=== PATIENT | male | born 1935 | race Hispanic/Latino ===

== ENCOUNTER 2017-12-14 14:16 | Emergency (ER) | payer OTHER ==
--- NOTE | 2017-12-14 17:36 | ER ---
Nurse's Notes [facility] Name: Jason Block Age: 82 yrs Sex: Male : 1935 Arrival Date: 12/14/2017 Time: 14:21 Bed 6 Private MD: None, None Diagnosis: Hematoma Presentation: 12/14 14:29 Presenting complaint: Child states: Swelling to surgical incision site, left hip area. jl7 Pt reports mild pain to the site. Transition of care: patient was not received from another setting of care. Onset of symptoms was December 13, 2017. Risk Assessment: Do you want to hurt yourself or someone else? Patient reports no desire to harm self or others. Initial Sepsis Screen: Does the patient meet any 2 criteria? No. Patient's initial sepsis screen is negative. Does the patient have a suspected source of infection? No. Patient's initial sepsis screen is negative. Care prior to arrival: None. 14:29 Method Of Arrival: Ambulatory [facility] 14:29 Acuity: JAIDEN 3 jl7 Triage Assessment: 14:33 General: Appears in no apparent distress. uncomfortable, Behavior is calm, cooperative, jl7 appropriate for age. Pain: Complains of pain in left femoral area Pain does not radiate. Pain currently is 2 out of 10 on a pain scale. 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 - Social history:: Smoking status: Patient/guardian denies using tobacco. - Ebola Screening: : No symptoms or risks identified at this time. Screenin:32 Abuse screen: Denies threats or abuse. Nutritional screening: No deficits noted. tw2 Tuberculosis screening: No symptoms or risk factors identified. Fall Risk None identified. Assessment: 14:40 General: Appears in no apparent distress. Behavior is calm, cooperative, appropriate tw2 for age. Pain: Denies pain. Neuro: Level of Consciousness is awake, alert, obeys commands, Oriented to person, place, situation. Cardiovascular: Denies chest pain, shortness of breath, Heart tones S1 S2 Patient's skin is warm and dry. Respiratory: Airway is patent Respiratory effort is even, unlabored, Respiratory pattern is regular, symmetrical, Breath sounds are clear bilaterally. GI: No signs and/or symptoms were reported involving the gastrointestinal system. : No signs and/or symptoms were reported regarding the genitourinary system. Derm: Skin is intact, is fragile, is thin, Skin is dry, Skin temperature is warm right inguinal swelling noted to surgical site. Musculoskeletal: Range of motion: intact in all extremities. 15:32 Reassessment: Patient appears in no apparent distress at this time. No changes from tw2 previously documented assessment. Patient and/or family updated on plan of care and expected duration. Pain level reassessed. Patient is alert, oriented x 3, equal unlabored respirations, skin warm/dry/pink. 16:53 Reassessment: Patient appears in no apparent distress at this time. No changes from tw2 previously documented assessment. Patient and/or family updated on plan of care and expected duration. Pain level reassessed. Patient is alert, oriented x 3, equal unlabored respirations, skin warm/dry/pink. 17:37 Reassessment: Patient appears in no apparent distress at this time. No changes from tw2 previously documented assessment. Patient and/or family updated on plan of care and expected duration. Pain level reassessed. Patient is alert, oriented x 3, equal unlabored respirations, skin warm/dry/pink. Vital Signs: 14:33 BP 96 / 48; Pulse 80; Resp 18 S; Temp 98.5(O); Pulse Ox 98% on R/A; Weight 70.31 kg jl7 (R); Height 5 ft. 6 in. (167.64 cm) (R); Pain 2/10; 15:31 BP 101 / 52; Pulse 80; Resp 17; Pulse Ox 100% on R/A; tw2 16:52 BP 111 / 57; Pulse 79; Resp 17; Pulse Ox 99% on R/A; tw2 17:37 BP 98 / 57; Pulse 80; Resp 17; Pulse Ox 100% on R/A; tw2 14:33 Body Mass Index 25.02 (70.31 kg, 167.64 cm) 7 ED Course: 14:21 Patient arrived in ED. mr 14:22 None, None is Private Physician. mr 14:30 Triage completed. jl7 14:33 Arm band placed on left wrist. jl7 14:35 Bed in low position. Call light in reach. Adult w/ patient. child monitor on. Pulse tw2 ox on. NIBP on. 14:36 Nayan Patino PA is PHCP. jr8 14:36 Ivan Gallardo MD is Attending Physician. jr8 15:28 Cynthia Stroud, RN is Primary Nurse. tw2 16:47 US Extrmty Nonvasular Limited In Process Unspecified. EDMS 17:42 No provider procedures requiring assistance completed. Patient did not have IV access tw2 during this emergency room visit. Administered Medications: No medications were administered Outcome: 17:35 Discharge ordered by . jr8 17:42 Discharged to home ambulatory, with family. tw2 17:42 Condition: stable 17:42 Discharge instructions given to patient, family, Instructed on discharge instructions, follow up and referral plans. Demonstrated understanding of instructions, follow-up care. 17:52 Patient left the ED. hb Signatures: Dispatcher [employer] EDCA Libby Wise mr Nayan Patino PA PA jr8 Luna Mendoza, RN RN Cynthia Stroud, RN RN tw2 Xin Chacko, RN RN jl7
--- NOTE | 2017-12-14 17:36 | EDPHYS ---
Physician Documentation [facility] Name: Jason Block Age: 82 yrs Sex: Male : 1935 Arrival Date: 12/14/2017 Time: 14:21 Bed 6 Private MD: None, None ED Physician Ivan Gallardo HPI: 12/14 16:10 This 82 yrs old Male presents to ER via Ambulatory with complaints of Ball on jr8 surgical site. 16:10 Patient last week had endovascular surgery of some kind. Family could not tell us jr8 exactly what. Stated that they noticed swelling to surgical site that is getting bigger. Stated that it will drain clear fluid from time to time as well. Patient denies pain or tenderness to site . The patient has not experienced similar symptoms in the past. The patient has not recently seen a physician. 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 - Social history:: Smoking status: Patient/guardian denies using tobacco. - Ebola Screening: : No symptoms or risks identified at this time. ROS: 16:10 Eyes: Negative for injury, pain, redness, and discharge, ENT: Negative for injury, jr8 pain, and discharge, Neck: Negative for injury, pain, and swelling, Cardiovascular: Negative for chest pain, palpitations, and edema, Respiratory: Negative for shortness of breath, cough, wheezing, and pleuritic chest pain, Abdomen/GI: Negative for abdominal pain, nausea, vomiting, diarrhea, and constipation, Back: Negative for injury and pain, MS/Extremity: Negative for injury and deformity, Neuro: Negative for headache, weakness, numbness, tingling, and seizure. 16:10 Skin: Positive for swelling, of the left femoral area. Exam: 16:10 Cardiovascular: Regular rate and rhythm with a normal S1 and S2. No gallops, murmurs, jr8 or rubs. Normal PMI, no JVD. No pulse deficits. Respiratory: Lungs have equal breath sounds bilaterally, clear to auscultation and percussion. No rales, rhonchi or wheezes noted. No increased work of breathing, no retractions or nasal flaring. Abdomen/GI: Soft, non-tender, with normal bowel sounds. No distension or tympany. No guarding or rebound. No evidence of tenderness throughout. Back: No spinal tenderness. No costovertebral tenderness. Full range of motion. MS/ Extremity: Pulses equal, no cyanosis. Neurovascular intact. Full, normal range of motion. Neuro: Awake and alert, GCS 15, oriented to person, place, time, and situation. Cranial nerves II-XII grossly intact. Motor strength 5/5 in all extremities. Sensory grossly intact. Cerebellar exam normal. Normal gait. 16:10 Skin: Patient has approximately 5 inch incision to left inguinal region. Dermal sutures placed and are intact. Mild clear fluid noted to area. No dehiscence of wound seen. No erythema/cellulitis seen. Palpable soft tissue swelling noted to surgical site that is well demarcated . Vital Signs: 14:33 BP 96 / 48; Pulse 80; Resp 18 S; Temp 98.5(O); Pulse Ox 98% on R/A; Weight 70.31 kg 7 (R); Height 5 ft. 6 in. (167.64 cm) (R); Pain 2/10; 15:31 BP 101 / 52; Pulse 80; Resp 17; Pulse Ox 100% on R/A; tw2 16:52 BP 111 / 57; Pulse 79; Resp 17; Pulse Ox 99% on R/A; tw2 17:37 BP 98 / 57; Pulse 80; Resp 17; Pulse Ox 100% on R/A; tw2 14:33 Body Mass Index 25.02 (70.31 kg, 167.64 cm) 7 MDM: 14:36 Patient medically screened. jr8 17:34 Data reviewed: vital signs, nurses notes, radiologic studies, ultrasound, and as a jr8 result, I will discharge patient. Data interpreted: Pulse oximetry: on room air is 99 %. Interpretation: normal. 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 ED course: Discussed case with Radiologist. Isolated Hematoma with no vascularity to it. . 12/14 15:13 Order name: US Cm Nonvasular Limited; Complete Time: 17:39 jr8 Administered Medications: No medications were administered Disposition: 12/15 07:13 Co-signature as Attending Physician, Ivan Gallardo MD. rn Disposition: 12/14/17 17:35 Discharged to Home. Impression: Hematoma . - Condition is Stable. - Discharge Instructions: Hematoma. - Medication Reconciliation Form, Thank You Letter, Antibiotic Education, Prescription Opioid Use form. - Follow up: Private Physician; When: 5 - 6 days; Reason: Recheck today's complaints, Continuance of care, Re-evaluation by your physician. - Problem is new. - Symptoms are unchanged. Signatures: Dispatcher [employer] EDMS Ivan Gallardo MD MD rn Roszak, Josh, PA PA jr8 Luna Mendoza RN RN hb Xin Chacko RN RN jl7 Corrections: (The following items were deleted from the chart) 12/14 17:52 17:35 12/14/2017 17:35 Discharged to Home. Impression: Hematoma . Condition is Stable. hb Forms are Medication Reconciliation Form, Thank You Letter, Antibiotic Education, Prescription Opioid Use. Follow up: Private Physician; When: 5 - 6 days; Reason: Recheck today's complaints, Continuance of care, Re-evaluation by your physician. Problem is new. Symptoms are unchanged. jr8
--- NOTE | 2017-12-14 17:37 | RAD REPORT ---
EXAM DESCRIPTION: US - Extremity Nonvascular Limited - 12/14/2017 5:30 pm CLINICAL HISTORY: Left groin pain COMPARISON: None FINDINGS: A 5.7 centimeter heterogeneous fluid collection is present within the left groin. It does not contain blood flow. IMPRESSION: A 5.7 centimeter heterogeneous fluid collection within the left groin most likely repres ents a hematoma.
== END 2017-12-14 17:52 | disposition home or self-care (01) ==
LOC: ER 14:16
DX: L76.32 Postprocedural hematoma of skin and subcutaneous tissue following other procedure (principal); I10 Essential (primary) hypertension; Z95.0 Presence of cardiac pacemaker; Z95.1 Presence of aortocoronary bypass graft
CPT/HCPCS: 76882; 99284

== ENCOUNTER 2018-04-07 19:28 | Emergency (ER) | payer OTHER ==
--- OUTSIDE RECORDS SUMMARY | 2018-04-07 19:31 | XMS REPORT ---
:1935 [facility] Address [address] [place] [address] [address] [place] [address] Care Team Providers Name Role Phone Unavailable Unavailable Unavailable Payers Payer Name Policy Type Policy Number Effective Date Expiration Date Problems This patient has no known problems. Allergies, Adverse Reactions, Alerts Allergy Allergy Status Severity Reaction(s) Onset Inactive Treating Comments Name Type Date Date Clinician No Known DA Active U 2016-03 Allergies -27 00:00:0 0 Medications This patient has no known medications.
[2018-04-07] MEDS ORDERED: ONDANSETRON 4 MG/2 ML VIAL ONE (21:09)
[2018-04-07] MEDS ORDERED: NA CHLORIDE 0.9% 250 ML ONE (21:09)
[2018-04-07 21:19] LABS: Albumin 3.4 g/dL (3.4-5.0); Potassium 3.9 mmol/L (3.5-5.1)
[2018-04-07 21:26] LABS: Absolute Lymphocytes (CBC) 1.9 K/uL (0.7-4.9); Absolute Neutrophil 6.9 K/uL (1.8-8.0); Basophils % 1.9 % (0-1.3); Eosinophils % 7.7 % (0-4.4); Hematocrit 28.8 % (39.6-49.0); Lymphocytes % 17.7 % (15.3-44.8); MCH 28.1 pg (27.0-35.0); MCV 84.5 fL (80-100); MPV 8.2 fL (7.6-11.3); Monocytes % 9.4 % (3.3-12.3); RBC Red Blood Cell Count 3.41 M/uL (4.33-5.43)
[2018-04-07 21:35] LABS: Bilirubin Direct 0.3 mg/dL (0-0.2); Bilirubin Total 0.5 mg/dL (0.2-1.0); Protein, Total 7.5 g/dL (6.4-8.2)
[2018-04-08] MEDS ORDERED: NA CHLORIDE 0.9% 500 ML ONE (00:23)
--- NOTE | 2018-04-08 00:37 | ER ---
Nurse's Notes [facility] Name: Jason Block Age: 82 yrs Sex: Male : 1935 Arrival Date: 04/07/2018 Time: 19:31 Bed 20 Private MD: Diagnosis: Unspecified abdominal pain;Vomiting;Diarrhea, unspecified Presentation: 04/07 19:39 Presenting complaint: Child states: Patient had defibrillator/pacemaker replaced on aj Sunday and reports that he "can feel something moving" in epigastrium. Denies pain. NAD. Transition of care: patient was not received from another setting of care. Onset of symptoms was April 03, 2018. Risk Assessment: Do you want to hurt yourself or someone else? Patient reports no desire to harm self or others. Initial Sepsis Screen: Does the patient meet any 2 criteria? No. Patient's initial sepsis screen is negative. Does the patient have a suspected source of infection? No. Patient's initial sepsis screen is negative. Care prior to arrival: None. 19:39 Method Of Arrival: Wheelchair aj 19:39 Acuity: JAIDEN 3 aj Triage Assessment: 19:41 General: Appears in no apparent distress. comfortable, Behavior is calm, cooperative, aj appropriate for age. Pain: Denies pain. Neuro: Level of Consciousness is awake, alert, obeys commands, Oriented to person, place, time, situation, Appropriate for age. Cardiovascular: Denies chest pain. Respiratory: Airway is patent Respiratory effort is even, unlabored, Respiratory pattern is regular, symmetrical. Derm: Skin is intact, is thin, Skin is pink, warm \\T\\ dry. normal. Historical: - Allergies: 19:41 No Known Allergies; aj - PMHx: 19:41 Anemia; COPD; Hyperlipidemia; Hypertension; Pacemaker; defibrillator; aj - PSHx: 19:41 TAVR (transaortic valve replacement) 12/07/17; CABG; aj - Immunization history:: Adult Immunizations up to date. - Social history:: Smoking status: Patient/guardian denies using tobacco. - Ebola Screening: : Patient negative for fever greater than or equal to 101.5 degrees Fahrenheit, and additional compatible Ebola Virus Disease symptoms Patient denies exposure to infectious person Patient denies travel to an Ebola-affected area in the 21 days before illness onset No symptoms or risks identified at this time. - Family history:: not pertinent. - Hospitalizations: : No recent hospitalization is reported. Screenin:41 Abuse screen: Denies threats or abuse. Nutritional screening: No deficits noted. jd3 Tuberculosis screening: No symptoms or risk factors identified. Fall Risk Ambulatory Aid- Crutches/Cane/Walker (15 pts). Gait- Weak (10 pts.). Mental Status- Oriented to own ability (0 pts). Total Chiang Fall Scale indicates Low Risk Score (25-44 pts). Fall prevention measures have been instituted. Side Rails Up X 2 Placed close to Nursing Station Frequent Obs/Assesments occuring Family Present and informed to notify staff if they need to leave bedside. Assessment: 20:39 General: Appears in no apparent distress. uncomfortable, Behavior is calm, cooperative, jd3 appropriate for age. Pain: Denies pain. Neuro: Level of Consciousness is awake, alert, obeys commands, Oriented to person, place, time, situation. Cardiovascular: Reports since recent pace-maker change Heart tones S1 S2 present Capillary refill < 3 seconds Patient's skin is warm and dry. Respiratory: Airway is patent Respiratory effort is even, unlabored, Respiratory pattern is regular, symmetrical, Breath sounds are clear bilaterally. GI: Abdomen is round non-distended, Bowel sounds present X 4 quads. Abd is soft and non tender X 4 quads. Reports slight discomfort in upper abdomen. : No signs and/or symptoms were reported regarding the genitourinary system. EENT: No signs and/or symptoms were reported regarding the EENT system. Derm: Skin is intact, Skin is dry, Skin is normal, Skin temperature is warm. Musculoskeletal: Circulation, motion, and sensation intact. Range of motion: intact in all extremities. 20:45 Reassessment: CT notified of pt finishing PO contrast. jd3 21:48 Reassessment: Patient appears in no apparent distress at this time. No changes from jd3 previously documented assessment. Patient and/or family updated on plan of care and expected duration. Pain level reassessed. Patient is alert, oriented x 3, equal unlabored respirations, skin warm/dry/pink. 22:52 Reassessment: Patient appears in no apparent distress at this time. No changes from jd3 previously documented assessment. Patient and/or family updated on plan of care and expected duration. Pain level reassessed. Patient is alert, oriented x 3, equal unlabored respirations, skin warm/dry/pink. 23:45 Reassessment: Patient appears in no apparent distress at this time. No changes from jd3 previously documented assessment. Patient and/or family updated on plan of care and expected duration. Pain level reassessed. Patient is alert, oriented x 3, equal unlabored respirations, skin warm/dry/pink. 04/08 00:31 Reassessment: Patient appears in no apparent distress at this time. No changes from jd3 previously documented assessment. Patient and/or family updated on plan of care and expected duration. Pain level reassessed. Patient is alert, oriented x 3, equal unlabored respirations, skin warm/dry/pink. Vital Signs: 04/07 19:41 BP 103 / 50; Pulse 81; Resp 17; Temp 98.1; Pulse Ox 99% on R/A; Weight 58.97 kg; Height aj 5 ft. 6 in. (167.64 cm); 21:48 BP 105 / 52; Pulse 80; Resp 18 S; Pulse Ox 100% on R/A; jd3 22:52 BP 101 / 51; Pulse 80; Resp 16 S; Pulse Ox 100% on R/A; jd3 04/08 00:31 BP 108 / 50; Pulse 80; Resp 16 S; Pulse Ox 99% on R/A; jd3 04/07 19:41 Body Mass Index 20.98 (58.97 kg, 167.64 cm) aj ED Course: 04/07 19:31 Patient arrived in ED. am2 19:40 Triage completed. aj 19:41 Arm band placed on left wrist. Patient placed in waiting room, Patient notified of wait aj time. 20:12 Ivan Gallardo MD is Attending Physician. rn 20:39 Moises Andersen RN is Primary Nurse. jd3 20:41 Patient has correct armband on for positive identification. Bed in low position. Call jd3 light in reach. Side rails up X 1. Adult w/ patient. 21:00 Inserted saline lock: 20 gauge in right antecubital area, using aseptic technique. jd3 Blood collected. 22:41 CT completed. Patient moved to CT via wheelchair. Patient moved back from CT. cw1 22:45 Abdomen In Process Unspecified. EDMS 04/08 00:49 No provider procedures requiring assistance completed. IV discontinued, intact, jd3 bleeding controlled, No redness/swelling at site. Pressure dressing applied. Administered Medications: 04/07 21:09 Drug: Zofran 4 mg Route: IVP; Site: right antecubital; jd3 21:30 Follow up: Response: No adverse reaction jd3 21:09 Drug: NS 0.9% 250 ml Route: IV; Rate: 1 bolus; Site: right antecubital; jd3 21:30 Follow up: Response: No adverse reaction; IV Status: Completed infusion; IV Intake: jd3 250ml 04/08 00:30 Drug: NS 0.9% 500 ml Route: IV; Rate: bolus; Site: right antecubital; jd3 00:51 Follow up: Response: No adverse reaction; IV Status: Completed infusion; IV Intake: jd3 500ml Intake: 04/07 21:30 IV: 250ml; Total: 250ml. jd3 04/08 00:51 IV: 500ml; Total: 750ml. jd3 Outcome: 00:36 Discharge ordered by . rn 00:50 Discharged to home via wheelchair, with family. jd3 00:50 Condition: stable 00:50 Discharge instructions given to family, Instructed on discharge instructions, follow up and referral plans. medication usage, Demonstrated understanding of instructions, follow-up care, medications, Prescriptions given X 1. 00:51 Patient left the ED. jd3 Signatures: Dispatcher [employer] EDFreya Ornelas RN RN aj Nieto, Roman, MD MD rn Woodley, Crystal 1 Freya Piña am2 Moises Andersen RN RN jd3 Corrections: (The following items were deleted from the chart) 04/07 22:12 21:45 Inserted saline lock: 20 gauge in right antecubital area, using aseptic jd3 technique. Blood collected. jd3
--- NOTE | 2018-04-08 00:37 | EDPHYS ---
Physician Documentation [facility] Name: Jason Block Age: 82 yrs Sex: Male : 1935 Arrival Date: 04/07/2018 Time: 19:31 Bed 20 Private MD: ED Physician Ivan Gallardo HPI: 04/07 21:38 This 82 yrs old Male presents to ER via Wheelchair with complaints of feels rn discomfort in abdomen. 21:38 The patient presents with abdominal pain in the upper abdomen, in the left upper rn quadrant. Onset: The symptoms/episode began/occurred 2 day(s) ago. The symptoms do not radiate. Associated signs and symptoms: Pertinent positives: nausea and vomiting, diarrhea, Pertinent negatives: blood in stools, fever, hematuria, shortness of breath. The symptoms are described as crampy, intermittent. Modifying factors: The symptoms are alleviated by nothing, the symptoms are aggravated by food. Severity of pain: At its worst the pain was mild in the emergency department the pain has improved. The patient has experienced similar episodes in the past. Reports left upper abd cramping, intermittent, assoc with nausea/vomiting/diarrhea, reports began 2 days ago, worse with food. . Historical: - Allergies: 19:41 No Known Allergies; aj - PMHx: 19:41 Anemia; COPD; Hyperlipidemia; Hypertension; Pacemaker; defibrillator; aj - PSHx: 19:41 TAVR (transaortic valve replacement) 12/07/17; CABG; aj - Immunization history:: Adult Immunizations up to date. - Social history:: Smoking status: Patient/guardian denies using tobacco. - Ebola Screening: : Patient negative for fever greater than or equal to 101.5 degrees Fahrenheit, and additional compatible Ebola Virus Disease symptoms Patient denies exposure to infectious person Patient denies travel to an Ebola-affected area in the 21 days before illness onset No symptoms or risks identified at this time. - Family history:: not pertinent. - Hospitalizations: : No recent hospitalization is reported. ROS: 21:38 Constitutional: Negative for fever, chills, and weight loss, Eyes: Negative for injury, rn pain, redness, and discharge, Cardiovascular: Negative for chest pain, palpitations, and edema, Respiratory: Negative for shortness of breath, cough, wheezing, and pleuritic chest pain, Abdomen/GI: + nausea/vomiting/diarrhea : Negative for injury, bleeding, discharge, and swelling, MS/Extremity: Negative for injury and deformity, Skin: Negative for injury, rash, and discoloration, Neuro: Negative for headache, weakness, numbness, tingling, and seizure. Exam: 21:38 Constitutional: This is a well developed, well nourished patient who is awake, alert, rn and in no acute distress. Head/Face: Normocephalic, atraumatic. ENT: MMM, no stridor Cardiovascular: regular, no murmur Respiratory: clear bilateral breath sounds, no respiratory distress, no wheezing Abdomen/GI: soft, non-tender, non-distended MS/ Extremity: Pulses equal, no cyanosis. Neurovascular intact. Full, normal range of motion. Equal circumference. Neuro: Awake and alert, GCS 15, oriented to person, place, time, and situation. Cranial nerves II-XII grossly intact. Motor strength 5/5 in all extremities. Sensory grossly intact. Vital Signs: 19:41 BP 103 / 50; Pulse 81; Resp 17; Temp 98.1; Pulse Ox 99% on R/A; Weight 58.97 kg; Height aj 5 ft. 6 in. (167.64 cm); 21:48 BP 105 / 52; Pulse 80; Resp 18 S; Pulse Ox 100% on R/A; jd3 22:52 BP 101 / 51; Pulse 80; Resp 16 S; Pulse Ox 100% on R/A; jd3 04/08 00:31 BP 108 / 50; Pulse 80; Resp 16 S; Pulse Ox 99% on R/A; jd3 04/07 19:41 Body Mass Index 20.98 (58.97 kg, 167.64 cm) aj MDM: 04/07 20:12 Patient medically screened. rn 04/08 00:03 Differential diagnosis: gastritis, gastroesophageal reflux disease. rn 00:34 Data reviewed: vital signs, nurses notes, lab test result(s), radiologic studies, CT rn scan, and as a result, I will discharge patient. Counseling: I had a detailed discussion with the patient and/or guardian regarding: the historical points, exam findings, and any diagnostic results supporting the discharge/admit diagnosis, lab results, radiology results, the need for outpatient follow up, to return to the emergency department if symptoms worsen or persist or if there are any questions or concerns that arise at home. Special discussion: Based on the patient's Hx, exam, and Dx evaluation, there is no indication for emergent surgery or inpatient Tx. It is understood by the patient/guardian that if the Sx's persist or worsen they need to return immediately for re-evaluation. I discussed with the patient/guardian in detail that at this point there is no indication for admission to the hospital. It is understood, however, that if the symptoms persist or worsen the patient needs to return immediately for re-evaluation. 00:34 ED course: No clear etiology of abd pain other than enteritis, given rn nausea/vomiting/diarrhea, neg ct abdomen, + mild dehydration and given fluids, EKG shows AV dual paced rhythm and pacemaker just replaced a few days ago. Asymptomatic while here with benign abd exam. Will dc home with zofran prn and pcp and cardiology f/u. . 04/07 20:21 Order name: Basic Metabolic Panel; Complete Time: 21:38 rn 04/07 20:21 Order name: CBC with Diff; Complete Time: 21:38 rn 04/07 20:21 Order name: Creatinine for Radiology; Complete Time: 21:38 rn 04/07 20:21 Order name: Hepatic Function; Complete Time: 21:38 rn 04/07 20:21 Order name: Lipase; Complete Time: 21:38 rn 04/07 20:21 Order name: IV Saline Lock; Complete Time: 20:58 rn 04/07 20:21 Order name: Labs collected and sent; Complete Time: 20:58 rn 04/07 21:48 Order name: Abdomen EDMS 04/08 00:04 Order name: EKG - Nurse/Tech; Complete Time: 00:30 rn 04/08 00:04 Order name: EKG; Complete Time: 00:04 rn Administered Medications: 04/07 21:09 Drug: Zofran 4 mg Route: IVP; Site: right antecubital; jd3 21:30 Follow up: Response: No adverse reaction jd3 21:09 Drug: NS 0.9% 250 ml Route: IV; Rate: 1 bolus; Site: right antecubital; jd3 21:30 Follow up: Response: No adverse reaction; IV Status: Completed infusion; IV Intake: jd3 250ml 04/08 00:30 Drug: NS 0.9% 500 ml Route: IV; Rate: bolus; Site: right antecubital; jd3 00:51 Follow up: Response: No adverse reaction; IV Status: Completed infusion; IV Intake: jd3 500ml Disposition: 04/08/18 00:36 Discharged to Home. Impression: Unspecified abdominal pain, Vomiting, Diarrhea, unspecified. - Condition is Stable. - Discharge Instructions: Abdominal Pain, Adult, Diarrhea, Adult, Nausea and Vomiting, Adult. - Prescriptions for Zofran ODT 4 mg Oral tablet,disintegrating - place 1 tablet by TRANSLINGUAL route every 8 hours As needed; 20 tablet. - Medication Reconciliation Form, Thank You Letter, Antibiotic Education, Prescription Opioid Use form. - Follow up: Private Physician; When: As needed; Reason: Recheck today's complaints, Re-evaluation by your physician. - Problem is new. - Symptoms have improved. Signatures: Dispatcher [employer] [facility] Freya Longo RN RN aj Nieto, Roman, MD MD rn Davies, Jonathon, RN RN jd3 Corrections: (The following items were deleted from the chart) 04/07 21:48 20:22 Abdomen Pelvis W Con+CT.RAD.BRZ ordered. [facility] 04/08 00:51 00:36 04/08/2018 00:36 Discharged to Home. Impression: Unspecified abdominal pain; jd3 Vomiting; Diarrhea, unspecified. Condition is Stable. Forms are Medication Reconciliation Form, Thank You Letter, Antibiotic Education, Prescription Opioid Use. Follow up: Private Physician; When: As needed; Reason: Recheck today's complaints, Re-evaluation by your physician. Problem is new. Symptoms have improved. rn
--- NOTE | 2018-04-08 07:03 | EKG ---
Test Date: 2018-04-08 Test Time: 00:22:58 Production Cook: RUPAL MEASUREMENT RESULTS: Intervals: Rate: 80 MT: 156 QRSD: 182 QT: 504 QTc: 581 Mauldin: P: MT: 156 QRS: -64 T: 113 INTERPRETIVE STATEMENTS: AV dual-paced rhythm Biventricular pacemaker detected Abnormal ECG No previous ECG available for comparison Electronically Signed On 04-08-18 07:02:18 FOLDING MACHINE SETTER by Paddy Monk
--- NOTE | 2018-04-08 07:25 | RAD REPORT ---
EXAM DESCRIPTION: CT - Abdomen Pelvis Wo Contrast - 04/08/2018 4:43 am CLINICAL HISTORY: Abdominal pain, epigastric pain A preliminary report was provided at the time of the study and reviewed prior to final report. COMPARISON: None. TECHNIQUE: Axial [address] imaging of the abdomen and pelvis was performed without IV contrast. No IV contrast was given because of allergy, abnormal renal function, patient refusal or physician re quest. Oral contrast was given. All CT scans are performed using dose optimization technique as appropriate and may include automated exposure control or mA/KV adjustment according to patient size. FINDINGS: No acute lung parenchymal process seen. No pleural effusion. Mild cardiomegaly is present without pericardial thickening or effusion. Pacemaker leads are present. Aortic valve replacement marietta dent. Liver shows no suspicious findings. There is a 12 millimeter subcapsular cyst segment III near the mi dline. No capsular nodularity. Spleen and pancreas show no acute findings. Gallbladder is contracted. Gallstones can be occult on CT imaging. No biliary tree dilatation. No hydronephrosis or suspicious renal mass. The 13 millimeter low-density capsular mass posterior mid right kidney is most likely a cyst. Dense renal artery vascular calcifications are present. No signi ficant adrenal finding. Isodense renal masses and pyelonephritis cannot be excluded in the absence of IV contrast. The urinary bladder is without significant finding. No dilated bowel loops or bowel wall thickening. No free air, free fluid or inflammatory stranding. N o hernia, mass or bulky lymphadenopathy. Patient has prominent degenerative change throughout the lumbar and lower thoracic spine no pathologi c bone process. Very dense calcifications of the arterial tree present. Infrarenal aorta measures up to 2.8 cm in siz e with mural thrombus present. Stenoses are likely present throughout the iliac vasculature. Dense re nal artery origin calcifications are present. Vascular assessment is precluded in the absence of cont rast. IMPRESSION: No acute or emergent CT abdomen or pelvis finding. Nonacute findings detailed in the bod y of the report. Full assessment is limited is the absence of IV contrast.
== END 2018-04-08 00:51 | disposition home or self-care (01) ==
LOC: ER 19:28
DX: R11.10 Vomiting, unspecified (principal); R19.7 Diarrhea, unspecified; I10 Essential (primary) hypertension; Z95.0 Presence of cardiac pacemaker; Z95.1 Presence of aortocoronary bypass graft
CPT/HCPCS: 36415; 74176; 80048; 80076; 83690; 85025; 93005; 96365; 96375; 99284; J2405; 96361; 96374